=== PATIENT | female | born 1980 | race Caucasian/White ===

== ENCOUNTER 2024-01-25 13:09 | Outpatient (AMB) | payer OTHER, SELFPAY ==
--- NOTE | 2024-01-25 13:10 | MHC.OFFVIS ---
Vital Signs 01/25/24 13:17 Height 5 ft 2 in Weight 155 lb 10.342 oz BMI 28.5 BP 124/80 Blood Pressure Location Lt brachial Position Sitting Pulse 71 Pulse Source Pulse Oximeter Pulse Oximetry (%) 98 Oxygen Delivery Method Room Air Intake Visit Reasons: Inflammation of joint of finger/cm Intake Note: Patient presents for inflammation of the joint. Fingers getting stiff and swollen. Allergies No Known Allergies Allergy (Verified 01/25/24 13:15) Medication List - Last Reconciled 01/25/24 by Vikas Santacruz MD No Known Home Meds HPI Comments Details: This is a 44-year-old female who presents for evaluation of bilateral hand arthritis. She states that her fingers stiff and swollen. Especially the left 3rd PIP. Stiffness of that joint next the finger gets swollen with activity such as gardening. She states that she was evaluated by a solvent mixer in [place] a few years ago and was told that she does not have any evidence of an autoimmune rheumatic disease, and she just has osteoarthritis. She wanted a 2nd opinion. She is unaware of any family history of an autoimmune rheumatic disease. Denies any history of DVT/PE. Denies any history of recurrent miscarriages. Denies any fevers, rashes or unintentional weight loss [facility] History History of hernia repair Social History Household Members: Family Housing: House Alcohol intake: never Patient Tobacco Use Status: Never used Tobacco Female Reproductive History Menstrual Total pregnancies: 5 Full term: 4 Number of Living Children: 4 Ab spontaneous: 1 Review of Systems Const Denies fever(s) and Denies weight loss Musc Reports deformity, Reports arthralgias, Reports joint swelling and Reports stiffness Physical Exam Vital Signs: Last Vital Signs Pulse 71 01/25/24 13:17 BP 124/80 01/25/24 13:17 Pulse Ox 98 01/25/24 13:17 Oxygen Delivery Method Room Air 01/25/24 13:17 BMI result Body Mass Index 28.5 Const General: cooperative, healthy appearing and comfortable Nutritional Appearance: overweight Orientation/consciousness: patient oriented x3 Limitations: no limitations HEENT Head: Yes normocephalic and Yes atraumatic Mouth: moist mucous membranes Resp Effort & Inspection: normal respiratory effort and able to speak in complete sentences Auscultation: clear to auscultation bilaterally Cardio Rate: regular rate Rhythm: regular rhythm Skin General skin exam: no rashes or lesions noted Neuro General: patient oriented x3 Extrem Other: Prominent left ulnar styloid (s/p fracture years ago) Osteoarthritic changes of both hands with prominent Yinka's node, most prominent is the left 3rd PIP associated with minimal swelling and tenderness Negative MCP squeeze test bilaterally Normal nailfold capillaroscopy Normal range of motion of elbows and shoulders without pain No knee pain with full flexion and extension No ankle swelling or tenderness Right foot bunion and bunionette Left foot bunion Negative MTP squeeze test bilaterally Assessment & Plan Assessment & Plan (1) Osteoarthritis of hands, bilateral: Code(s): M19.041 - Primary osteoarthritis, right hand; M19.042 - Primary osteoarthritis, left hand Category: Medical Qualifiers: Osteoarthritis type: primary Qualified Code(s): M19.041 - Primary osteoarthritis, right hand; M19.042 - Primary osteoarthritis, left hand Plan: This is a 44-year-old female who presents for evaluation of bilateral hand pain. She has here for a 2nd opinion. Upon evaluation I do not see any signs suggestive of an autoimmune rheumatic disease. Clinical picture rather consistent with bilateral hand osteoarthritis. Discussed management of hand osteoarthritis, can use Tylenol as needed for pain. Voltaren gel trial. Can use NSAIDs sparingly as needed. we discussed occupational therapy. Patient not interested at this time. Discussed a paraffin wax machine. Patient will think about it. Advised patient that she might consider evaluation by hand surgeon if the pain and swelling of the left 3rd PIP become progressively worse. Follow-up with me as needed Plan I spent 20 minutes reviewing patient's chart, evaluating patient, counseling patient and documenting in the chart Coding Level of Care Code New Pt Level 3 (37885) Diagnoses Primary osteoarthritis of both hands M19.041; M19.042 Osteoarthritis type: primary
[2024-01-25 13:17] VITALS: BP 124/80; PULSE 71; O2SAT 98; BMI 28.5
== END 2024-01-25 13:38 | disposition home or self-care (01) ==
PROVIDERS: PCP Family Medicine; Visit Provider Student in an Organized Health Care Education/Training Program
DX: M19.041 Primary osteoarthritis, right hand (principal); M19.042 Primary osteoarthritis, left hand
CPT/HCPCS: 99203

== ENCOUNTER → 2024-01-25 13:09 | Outpatient (BNVA) | payer OTHER, SELFPAY | PROVIDERS: PCP Family Medicine; Visit Provider Student in an Organized Health Care Education/Training Program ==